=== PATIENT | male | born 1965 | race Caucasian/White ===

== ENCOUNTER 2021-05-13 01:51 | Emergency (ER) | payer MEDICAID ==
[~2021-05-13] VITALS: Ht 175.3 cm; Wt 81.6 kg
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
--- NOTE | 2021-05-13 01:40 | NUR ---
PT TAKEN TO CT
--- NOTE | 2021-05-13 01:45 | NUR ---
PT RETURNED FROM CT
[~2021-05-13 01:51] MED LIST: LIDOCAINE 1%-EPI 1:100,000 20 ML VIAL ONE; LIDOCAINE 1%-EPI 1:100,000 20 ML VIAL TP ONE; LIDOCAINE/PRILOCAINE (5GM) 5 GM TUBE TP ONE; TDAP [DIPH/PERTUSSIS/TET] 0.5 ML VIAL IM ONE
--- NOTE | 2021-05-13 01:51 | NUR ---
VITAL SIGNS AT 0110: BP148/80 HR 82 RR 18 02 SAT 98% UNABLE TO DOCUMENT DUE TO TECHNICAL ISSUES RELATED TO TIME CHANGE
[2021-05-13] MEDS ORDERED: KETOROLAC TROMETHAMINE INJ 30 MG/ML VIAL IM ONE (02:30)
[2021-05-13] MEDS ORDERED: KETOROLAC TROMETHAMINE INJ 30 MG/ML VIAL ONE (02:45)
--- NOTE | 2021-05-13 02:50 | NUR ---
Patient discharged to home in stable condition. Written and verbal after care instructions given. Patient verbalizes understanding of instruction.
[2021-05-13 03:05] VITALS: BP 130/72
== END 2021-05-13 03:06 | disposition home or self-care (01) ==
LOC: ER 01:55
DX: S01.01XA Laceration without foreign body of scalp, initial encounter (principal); Z60.2 Problems related to living alone; V49.49XA Driver injured in collision with other motor vehicles in traffic accident, initial encounter; Y93.89 Activity, other specified; Y92.413 State road as the place of occurrence of the external cause; Y99.8 Other external cause status
CPT/HCPCS: 12002; 70450; 72125; 90471; 90715; 96372; 99284; J1885; J3490